=== PATIENT | female | born 1990 | race Caucasian/White ===

== ENCOUNTER 2017-03-27 18:14 | Outpatient (CLI) | END 2017-03-27 20:16 | disposition home or self-care (01) ==

== ENCOUNTER 2017-03-30 08:15 | Inpatient (IN) | END 2017-04-01 18:39 | disposition home or self-care (01) | DRG 775 ==

== ENCOUNTER 2018-04-21 20:55 | Inpatient (IN) | payer OTHER ==
[~2018-04-21] VITALS: Ht 157.5 cm; Wt 77.4 kg
[~2018-04-21 20:55] MED LIST: CALC600T5 PO; FERR240T9 PO; PREN-21 PO
[2018-04-21 21:52] VITALS: Ht 157.5 cm; Wt 77.4 kg
[2018-04-21 21:53] VITALS: BP 113/71; PULSE 91; RESP 18
[2018-04-21] MEDS ORDERED: CARBOPROST 250 MCG INJ IM PRN (22:30)
[2018-04-21] MEDS ORDERED: OXYTOCIN 30 UNITS/LR 500 ML IV SCH ×2 (22:30)
[2018-04-21] MEDS ORDERED: LIDOCAINE 1% (MPF) 30 ML INJ INJ PRN (22:30)
[2018-04-21] MEDS ORDERED: IBUPROFEN 600 MG TAB PO PRN (22:30)
[2018-04-21] MEDS ORDERED: OXYTOCIN 30 UNITS/LR 500 ML IV PRN (22:30)
[2018-04-21] MEDS ORDERED: MISOPROSTOL 200 MCG TAB PR PRN (22:30)
[2018-04-21] MEDS ORDERED: METHYLERGONOVINE 0.2 MG INJ IM PRN (22:30)
[2018-04-21] MEDS ORDERED: HYDROCORTISONE 1% 28 GM CR TOP PRN (22:30)
[2018-04-21] MEDS: LACTATED RINGER'S 1,000 ML IV SCH (23:26)
[2018-04-22] MEDS ORDERED: AMPICILLIN 2 GM/NS (PMX) 100 ML IVPB ONE
[2018-04-22] MEDS ORDERED: OXYTOCIN 30 UNITS/LR 500 ML IV SCH ×2 (03:00→19:44)
[2018-04-22] MEDS: AMPICILLIN 1 GM/NS (PMX) 50 ML IVPB SCH ×4 (04:02→16:15)
[2018-04-22] MEDS: LACTATED RINGER'S 1,000 ML IV SCH ×2 (04:02→10:23)
--- NOTE | 2018-04-22 06:20 | TRIAGE ---
OB Triage Datetime Report Generated by CPN: 04/22/2018 06:20 Datetime: 04/22/2018 05:30 Stage of : Labor Labor Evaluation Frequency: 3-8 Monitor Mode: External Duration (sec)2399: 40-60 Quality: Mild Pattern: Normal: <= 5 Contractions in 10 Minutes Resting Tone Leupp: Relaxed Contraction Comments: SOME UTERINE IRRITABILITY NOTED Heart Rate FHR Baseline Rate: 135 Monitor Mode: External US Variability: Moderate 6-25 bpm Accelerations: 15X15 Decelerations: None Datetime: 04/22/2018 04:30 Stage of : Labor Labor Evaluation Frequency: 5-7 Monitor Mode: External Duration (sec)2399: 40-60 Quality: Mild Pattern: Normal: <= 5 Contractions in 10 Minutes Resting Tone Leupp: Relaxed Contraction Comments: SOME UTERINE IRRITABILITY NOTED Heart Rate FHR Baseline Rate: 135 Monitor Mode: External US Variability: Moderate 6-25 bpm Accelerations: 15X15 Decelerations: None Datetime: 04/22/2018 04:03 Temperature Route: Oral Datetime: 04/22/2018 03:30 Stage of : Labor Labor Evaluation Frequency: OCCASIONAL Monitor Mode: External Duration (sec)2399: 40-60 Quality: Mild Pattern: Normal: <= 5 Contractions in 10 Minutes Resting Tone Leupp: Relaxed Heart Rate FHR Baseline Rate: 130 Monitor Mode: External US Variability: Moderate 6-25 bpm Accelerations: 15X15 Decelerations: None Comments: SOME LOSS OF CONTACT DUE TO PT ITCHING STOMACH Datetime: 04/22/2018 02:30 Stage of : Labor Labor Evaluation Frequency: OCCASIONAL Monitor Mode: External Duration (sec)2399: 40-60 Quality: Mild Pattern: Normal: <= 5 Contractions in 10 Minutes Resting Tone Leupp: Relaxed Heart Rate FHR Baseline Rate: 130 Monitor Mode: External US Variability: Moderate 6-25 bpm Accelerations: 15X15 Decelerations: None Comments: SOME LOSS OF CONTACT DUE TO PT ITCHING STOMACH Datetime: 04/22/2018 01:30 Stage of : Labor Labor Evaluation Frequency: OCCASIONAL Monitor Mode: External Duration (sec)2399: 40-60 Quality: Mild Pattern: Normal: <= 5 Contractions in 10 Minutes Resting Tone Leupp: Relaxed Heart Rate FHR Baseline Rate: 130 Monitor Mode: External US Variability: Moderate 6-25 bpm Accelerations: 15X15 Decelerations: None Comments: SOME LOSS OF CONTACT DUE TO PT ITCHING STOMACH Datetime: 04/22/2018 00:30 Stage of : Labor Labor Evaluation Frequency: OCCASIONAL Monitor Mode: External Duration (sec)2399: 40-60 Quality: Mild Pattern: Normal: <= 5 Contractions in 10 Minutes Resting Tone Leupp: Relaxed Heart Rate FHR Baseline Rate: 125 Monitor Mode: External US Variability: Moderate 6-25 bpm Accelerations: 15X15 Decelerations: None Category: Category I Comments: SOME LOSS OF CONTACT DUE TO PT ITCHING STOMACH Datetime: 04/21/2018 23:30 Assessment Type: Admission Assessment Vaginal Bleeding: None Maternal Assessment Level of Consciousness: Fully Conscious DTR's/Clonus: DTRs 2+; No Clonus Headache: Denies Blurred Vision: No Respiratory Effort: Unlabored; Regular Rhythm; Equal Expansion Breath Sounds, Left: Clear and Equal Breath Sounds, Right: Clear and Equal Nausea/Vomiting: Denies RUQ Epigastric Pain: Denies Lower Extremities Edema: None Degree: None Upper Extremities Edema: None Degree: None Facial Edema: None Fall Risk Assessment History of Falling: (0) No Secondary Diagnosis: (0) No Ambulatory Aid: (0) Bedrest/Nurse Assist IV Therapy: (20) Yes Gait: (0) Normal/Bedrest/Immobile Mental Status: (0) Oriented to Own Ability Fall Score: 20 Fall Risk Score Definition: No Risk: No action required Labor Evaluation Frequency: IRREGULAR Duration (sec)2399: 40-60 Quality: Mild Pattern: Normal: <= 5 Contractions in 10 Minutes Resting Tone Leupp: Relaxed Heart Rate FHR Baseline Rate: 125 Variability: Moderate 6-25 bpm Accelerations: 15X15 Decelerations: None Pain Assessment Pain Scale: 7 Pain Presence: Intermittent Pain Type: Cramping Pain Location: Abdomen Pain Goal: 4 Membrane Status: Intact Datetime: 04/21/2018 23:24 Stage of : Labor Datetime: 04/21/2018 21:55 Vaginal Exam Dilatation (cms): 3.5 Effacement (%): 70 Station: -3 Exam By: Mattie Olson RN Membrane Status: Intact Vaginal Bleeding: None Cervix, Consistency: Soft Cervix, Position: Posterior Presentation 'A': Cephalic Datetime: 04/21/2018 21:39 Time of Arrival: 04/21/2018 22:30 EGA: 39.2 Arrived By: Ambulatory Arrived From: Home Datetime: 04/21/2018 21:15 Time of Arrival: 04/21/2018 20:42 Arrived By: Wheelchair Arrived From: Home Chief Complaint: Constant abd pain Movement: Present Contractions: Irregular Time Contractions Began: 04/18/2018 10:00 Contractions: Constant Rupture of Membranes: Denies Vaginal Bleeding: None Vaginal Discharge: Denies Recent Sexual Intercouse: Denies Abdominal Trauma: Not Applicable Patient Complaints: Cramping; Other Additional Patient Complaints: Heartburn Time Provider Notified: 04/22/2018 22:00 Provider Notified: Eshaghian Initial Plan: CEFM Datetime: 04/21/2018 21:13 Stage of : OB Triage Assessment Type: Triage Maternal Assessment Level of Consciousness: Fully Conscious DTR's/Clonus: DTRs 2+; No Clonus Headache: Denies Blurred Vision: No Respiratory Effort: Unlabored; Regular Rhythm; Equal Expansion Breath Sounds, Left: Clear and Equal Breath Sounds, Right: Clear and Equal Nausea/Vomiting: Denies RUQ Epigastric Pain: Denies Lower Extremities Edema: None Degree: None Upper Extremities Edema: None Degree: None Facial Edema: None Temperature Route: Oral Fall Risk Assessment History of Falling: (0) No Secondary Diagnosis: (0) No Ambulatory Aid: (0) Bedrest/Nurse Assist IV Therapy: (0) No Gait: (0) Normal/Bedrest/Immobile Mental Status: (0) Oriented to Own Ability Fall Score: 0 Fall Risk Score Definition: No Risk: No action required Pain Assessment Pain Scale: 8 Pain Presence: Constant Pain Type: Cramping Pain Location: Abdomen
[2018-04-22] MEDS ORDERED: DIPHENHYDRAMINE 50 MG INJ IM PRN (07:00)
[2018-04-22] MEDS ORDERED: FENTAnyl 2MCG/ML-ROPIV 0.2% 100 ML ONE (09:34)
--- NOTE | 2018-04-22 09:42 | PREAC ---
Date/Time of Note Date/Time of Note DATE: 04/22/18 TIME: 09:41 Anesthesia Eval and Record Evaluation Time Pre-Procedure Interview DATE: 04/22/18 TIME: 09:41 Age 28 Sex female NPO: 8 hrs Preoperative diagnosis Labor Pain Planned procedure Labor Epidural Past Medical History Past Medical History: Includes Heme: Anemia : : (4), Para: (3), Gestational age: (39) Surgery & Anesthesia Issues No known issue Meds Anticoagulation: No Beta Fabián within 24 hr: No Reason Beta Fabián not given: Pt. not on B-Fabián Reported Medications Ferrous Gluconate (Iron) 1 Tab Tablet, 1 TAB PO DAILY 08/02/13 Calcium Carbonate (CALCIUM) 600 Mg Tablet, 600 MG PO DAILY 08/02/13 Vit/Fe Fum/Maribel/Fa ( 19 Tablet) 1 Tab Tablet, 1 TAB PO DAILY 08/02/13 Current Medications Lactated Ringer's 1,000 ml @ 125 mls/hr Q8H IV Last administered on 04/22/18at 04:02; Admin Dose 125 MLS/HR; Start 04/21/18 at 22:18 Lidocaine (Xylocaine 1% (Mpf)) 30 ml ONCE PRN INJ .EPISIOTOMY; Start 04/21/18 at 22:30 Oxytocin/Lactated Ringer's 500 ml @ 500 mls/hr ONCE POST IV ; Start 04/21/18 at 22:30 Oxytocin/Lactated Ringer's 500 ml @ 125 mls/hr POST IV ; Start 04/21/18 at 22:30 Ibuprofen (Motrin) 600 mg ONCE PRN PO .PAIN 1-5; Start 04/21/18 at 22:30 Oxytocin/Lactated Ringer's 500 ml @ 0 mls/hr ONCE PRN IV .VAGINAL BLEEDING; Start 04/21/18 at 22:30 Methylergonovine Maleate (Methergine) 0.2 mg ONCE PRN IM .VAGINAL BLEEDING; Start 04/21/18 at 22:30 Carboprost Tromethamine (Hemabate) 250 mcg ONCE PRN IM .VAGINAL BLEEDING; Start 04/21/18 at 22:30 Misoprostol (Cytotec) 1,000 mcg ONCE PRN AK .VAGINAL BLEEDING; Start 04/21/18 at 22:30 Hydrocortisone (Hydrocortisone 1% Cr) 1 applic BID PRN TOP ITCHING; Start 04/21/18 at 22:30 Ampicillin 50 ml @ 100 mls/hr Q4H IVPB Last administered on 04/22/18at 08:01; Admin Dose 100 MLS/HR; Start 04/22/18 at 04:00 Oxytocin/Lactated Ringer's 500 ml @ 0 mls/hr FOR INDUCTION IV Last administered on 04/22/18at 04:07; Admin Dose 1 MLS/HR; Start 04/22/18 at 03:00 Diphenhydramine HCl (Benadryl) 25 mg Q6H PRN IM ITCHING; Start 04/22/18 at 07:00 Meds reviewed: Yes Allergies Coded Allergies: No Known Allergy (Verified , 04/21/18) Allergies Reviewed: Yes Labs/Studies Labs Reviewed: Reviewed by anesthesiologist Result Diagram: 04/21/18 2235 Laboratory Tests 04/21/18 22:35 Blood Bank Test 04/21/18 22:35 Antibody Screen NEGATIVE Blood Type A POSITIVE Rh Immune Globulin Candidate NO test: Positive Studies: ECG (n/a), CXR (n/a) Pre-procedure Exam Last vitals Vital Signs Date Temp Pulse Resp B/P (MAP) Pulse Ox O2 O2 Flow FiO2 Time Delivery Rate 04/21/18 98.0 91 18 113/71 Room Air 21:53 (85) Airway: Adequate mouth opening, Adequate thyromental dist Mallampati: Mallampati II Teeth: Normal Lung: Normal Heart: Normal ASA Physical Status ASA physical status: 2 Emergency: None Planned Anesthetic Neuraxial: Epidural Planned Pain Management Epidural Pre-operative Attestations Prior to commencing anesthesia and surgery, the patient was re-evaluated, there was verification of: *The patient's identity *The results of appropriate recent lab work and preoperative vital signs *The above evaluation not changing prior to induction *Anesthetic plan, risk benefits, alternative and complications discussed with patient/family; questions answered; patient/family understands, accepts and wishes to proceed. REUBEN YOUNG MD Apr 22, 2018 09:42
--- NOTE | 2018-04-22 09:44 | PAC ---
Date/Time of Note Date/Time of Note DATE: 04/22/18 TIME: 09:43 Post-Anesthesia Notes Post-Anesthesia Note Last documented vital signs Vital Signs Date Temp Pulse Resp B/P (MAP) Pulse Ox O2 O2 Flow FiO2 Time Delivery Rate 04/22/18 98.0 91 18 113/71 Room Air 09:43 (85) Activity: WNL Respiratory function: WNL Cardiovascular function: WNL Mental status: Baseline Pain reasonably controlled: Yes Hydration appropriate: Yes Nausea/Vomiting absent: Yes REUBEN YOUNG MD Apr 22, 2018 09:44
[2018-04-22] MEDS ORDERED: NALOXONE (0.4 MG/ML) INJ IV PRN (10:00)
[2018-04-22] MEDS ORDERED: FENTAnyl 2MCG/ML-ROPIV 0.2% 100 ML BAG EPI SCH (10:00)
[2018-04-22] MEDS ORDERED: ACETAMINOPHEN 325 MG TAB PO PRN (14:00)
--- NOTE | 2018-04-22 17:19 | PREOPHP ---
DATE OF ADMISSION: 04/21/2018 HISTORY OF PRESENT ILLNESS: Ms. Hanna Calabrese is a 28-year-old 4, para 3, EDC 04/26/2018, in trauterine at 39 weeks and 2 days gestational age, presented to triage last night in labor. She reports her pain contraction is 8/10. She denies any vaginal bleeding or discharge. Her [facility] care took place with Dr. Guido. PAST MEDICAL HISTORY: None. MEDICATIONS: vitamins. PAST SURGICAL HISTORY: None. OBSTETRIC HISTORY: Times 3 vaginal deliveries. GYNECOLOGIC HISTORY: Menarche at 14, regular 3 to 4 days. Denies any sexually transmitted disease. Sexually active with 1 partner. SOCIAL HISTORY: Denies any smoking, drugs, or alcohol. FAMILY HISTORY: None. REVIEW OF SYSTEMS: All within normal except history of present illness. PHYSICAL EXAMINATION: HEENT: Within normal. LUNGS: CTA, bilateral. CARDIOVASCULAR: S1, S2, regular rhythm. ABDOMEN: Gravid, nontender. Negative CVA, bilateral. EXTREMITIES: Negative on calf tenderness. PELVIC: Vaginal exam on admission 3 to 4 cm dilated, 70% effaced, -3 station. heart tracing c ategory 1, TOCO regular contractions. ASSESSMENT: Intrauterine at term in labor. PLAN: Admit the patient with Pitocin augmentation. Dictated By: DIANNE REDDY/PASQUALE Conf#: [id number] DID#: [id number]
--- NOTE | 2018-04-22 19:44 | LDN ---
Date/Time of Note Date/Time of Note DATE: 04/22/18 TIME: 19:43 Delivery Summary Weeks of Gestation 39 Placenta Delivered: Spontaneously Meconium: none Episiotomy: No Estimated blood loss: 150 Sponge & Needle done & correct: Yes All needle counts correct: Yes Any foreign bodies felt in the: No Delivery Information Sex Infant Sex: female Apgars 1 Minute: 9 5 Minute: 9 Suctioning Nose & mouth suctioned at kenji: No Delee suction performed: No Umbilical Cord Umbilical cord with: 3 Vessels Cord presentations: no nuchal cord Cord Blood was obtained: Yes DIANNE COLE MD Apr 22, 2018 19:44
[2018-04-22] MEDS ORDERED: WITCH HAZEL/GLYCERIN PAD PR PRN (20:00)
[2018-04-22] MEDS ORDERED: OXYTOCIN 30 UNITS/LR 500 ML IV PRN (20:00)
[2018-04-22] MEDS ORDERED: CARBOPROST 250 MCG INJ IM PRN (20:00)
[2018-04-22] MEDS ORDERED: METHYLERGONOVINE 0.2 MG INJ IM PRN (20:00)
[2018-04-22] MEDS ORDERED: MISOPROSTOL 200 MCG TAB PR PRN (20:00)
[2018-04-22] MEDS ORDERED: ONDANSETRON 4 MG INJ IV PRN (20:00)
[2018-04-22] MEDS ORDERED: BENZOCAINE 20% 56 ML SPRAY TOP PRN (20:00)
[2018-04-22] MEDS ORDERED: DIPHENHYDRAMINE 25 MG CAP PO PRN (20:00)
[2018-04-22] MEDS ORDERED: LANOLIN HPA 1 PKT TOP PRN (20:00)
[2018-04-22] MEDS ORDERED: NACL 0.9% 3 ML SYG IV SCH (20:00)
[2018-04-22 20:26] VITALS: BP 108/64; PULSE 82; RESP 19
[2018-04-22 20:41] VITALS: BP 109/70; PULSE 83; RESP 19
[2018-04-22 20:56] VITALS: BP 117/67; PULSE 86; RESP 18
[2018-04-22] MEDS: SENNA/DOCUSATE NA (8.6MG/50MG) TAB PO SCH (21:00)
[2018-04-22 21:11] VITALS: BP 106/56; PULSE 77; RESP 18
[2018-04-22 21:35] VITALS: BP 93/53; PULSE 65; RESP 18
[2018-04-23] MEDS: IBUPROFEN 600 MG TAB PO SCH ×4 (00:23→18:00)
[2018-04-23 04:13] VITALS: BP 113/61; PULSE 74; RESP 18
[2018-04-23] MEDS: OXYCODONE/ASPIRIN (4.88/325) TAB PO PRN ×4 (04:28→21:25)
[2018-04-23] MEDS: SENNA/DOCUSATE NA (8.6MG/50MG) TAB PO SCH ×2 (08:01→21:22)
[2018-04-23 08:30] VITALS: BP 107/60; PULSE 70; RESP 20
[2018-04-23 15:44] VITALS: BP 99/64; PULSE 85; RESP 20
[2018-04-23 20:14] VITALS: BP 90/50; PULSE 63; RESP 18
[2018-04-24] MEDS: IBUPROFEN 600 MG TAB PO SCH ×3 (00:25→11:40)
[2018-04-24 04:05] VITALS: BP 109/67; PULSE 75; RESP 18
[2018-04-24] MEDS: OXYCODONE/ASPIRIN (4.88/325) TAB PO PRN (06:37)
[2018-04-24 08:30] VITALS: BP 100/54; PULSE 65; RESP 18
[2018-04-24] MEDS ORDERED: DIPHTH/TET/ACEL PERTUSS (ADULT) 0.5 ML VIAL IM* ONE (10:00)
[2018-04-24] MEDS: SENNA/DOCUSATE NA (8.6MG/50MG) TAB PO SCH (11:40)
--- NOTE | 2018-04-24 17:45 | PD.PPDC ---
WOUND CARE RN Discharge Instruction Provider Information Physician Information 04/24/2018 Diagnosis [id number] Final Diagnosis: [id number] s/p Condition [id number] Patient Condition: Ihelz9n Good Activity/Restrictions [id number] Activity: [id number] Normal Activity Bedrest [id number] Restrictions: [id number] No Exercising No Lifting No Driving Minimize Walking Minimize Stair-climbing No Sexual Activity Nothing in the Vagina No [place] No Tampons, douche Follow-up Follow-up with Physician: 1 Return to clinic for [id number] PORTFOLIO ARCHITECT Instructions: Tzfwz2i Fever greater than 101 Chills Worsening abdominal pain Excessive Vaginal Bleeding More than 2 pads per hour Unable to tolerate diet [id number] OB Instructions: Ztsbl2e Breast Tenderness Depression Blurried Vision Headache VINCENT DIETRICH MD Apr 24, 2018 17:45
--- NOTE | 2018-04-24 17:49 | PN ---
Date/Time of Note Date/Time of Note DATE: 04/24/18 TIME: 17:46 OB Subjective Subjective Subjective Vaginal bleeding mild. Breast-feeding. Baby is a still in NICU. Reports of swelling of both lower extremity otherwise denies any other symptoms. Ambulating. Urinated. Denies any complaint. OB Objective Objective Objective GA: Alert and oriented x4 does not appear to be in any acute distress Abdomen: Soft, fundus palpable below the umbilicus and nontender Extremities: 2+ bilateral lower extremity edema, no cord palpable negative Homans sign Breast: No evidence of mastitis or fissure VS - Last 72 Hours, by Label Date Temp Pulse Resp B/P (MAP) Pulse Ox O2 O2 Flow FiO2 Time Delivery Rate 04/24/18 98.3 65 18 100/54 Room Air 08:30 (69) 04/24/18 98.0 75 18 109/67 Room Air 04:05 (81) 04/23/18 97.8 63 18 90/50 (63) Room Air 20:14 04/23/18 97.7 85 20 99/64 (76) 15:44 04/23/18 98.6 70 20 107/60 Room Air 08:30 (76) 04/23/18 97.5 74 18 113/61 Room Air 04:13 (78) 04/22/18 98.1 65 18 93/53 (66) Room Air 21:35 04/22/18 77 18 106/56 Room Air 21:11 (73) 04/22/18 86 18 117/67 Room Air 20:56 (84) 04/22/18 83 19 109/70 Room Air 20:41 (83) 04/22/18 97.6 82 19 108/64 Room Air 20:26 (79) 04/21/18 98.0 91 18 113/71 Room Air 21:53 (85) Laboratory Tests Test 04/23/18 06:15 04/23/18 06:33 White Blood Count 6.9 10^3/ul Red Blood Count 3.57 10^6/ul Hemoglobin 9.4 g/dl Hematocrit 29.6 % Mean Corpuscular Volume 82.9 fl Mean Corpuscular Hemoglobin 26.3 pg Mean Corpuscular Hemoglobin Concent 31.8 g/dl Red Cell Distribution Width 13.9 % Platelet Count 144 10^3/UL Mean Platelet Volume 11.1 fl Immature Granulocytes % 1.200 % Neutrophils % 69.3 % Lymphocytes % 18.2 % Monocytes % 10.6 % Eosinophils % 0.6 % Basophils % 0.1 % Nucleated Red Blood Cells % 0.4 /100WBC Immature Granulocytes # 0.080 10^3/ul Neutrophils # 4.8 10^3/ul Lymphocytes # 1.3 10^3/ul Monocytes # 0.7 10^3/ul Eosinophils # 0.0 10^3/ul Basophils # 0.0 10^3/ul Nucleated Red Blood Cells # 0.0 10^3/ul Lab Scanned Report [facility] [id number] OB Assessment/Plan Other Assessment: Status post day #2 Doing well Anemia, , asymptomatic Advised patient to take iron twice a day with stool softener Follow-up with primary OB office in 1 week and 6 is discussed Patient verbalized understanding Bilateral lower extremity swelling, symmetric, no evidence of DVT, reassured, advised the patient elevated and legs and using support stocking DC home today Follow-up in 6 weeks and with OB office VINCENT DIETRICH MD Apr 24, 2018 17:49
--- NOTE | 2018-04-24 17:51 | DS ---
Date/Time of Note Date/Time of Note DATE: 04/24/18 TIME: 17:50 Discharge Summary Admission/Discharge Info Admit Date/Time Apr 21, 2018 at 22:00 Discharge Date/Time Apr 24, 2018 at 17:00 Discharge Diagnosis Status post Anemia, asymptomatic, Patient Condition: Good Consults N/A Procedures Hx of Present Illness Ms. Hanna Calabrese is a 28-year-old 4, para 3, EDC 04/26/2018, intrauterine at 39 weeks and 2 days gestational age, presented to triage last night in labor. She had uncomplicated intrapartum course. course only was complicated by anemia, , likely under estimated blood loss. Patient was asymptomatic. Otherwise no other issue. On day #2 patient was noted to be stable enough for discharge. She was vomiting. Breast-feeding. Urinated. Denies any symptoms. Advised to take iron twice a day with stool softener and follow-up in 1 weeks and 6 weeks with primary OB office Hospital Course Complicated only for anemia, , asymptomatic. Patient can ambulate without any symptoms. Advised patient take her vitamin and iron and follow-up within 1 week and 6 weeks with primary OB office Home Meds Reported Medications Ferrous Gluconate (Iron) 1 Tab Tablet, 1 TAB PO DAILY 08/02/13 Calcium Carbonate (CALCIUM) 600 Mg Tablet, 600 MG PO DAILY 08/02/13 Vit/Fe Fum/Maribel/Fa ( 19 Tablet) 1 Tab Tablet, 1 TAB PO DAILY 08/02/13 Follow-up Plan In 1 week and 6 is with primary OB office Primary Care Provider Not On Staff Doctor Time spent on discharge: < 30 minutes VINCENT DIETRICH MD Apr 24, 2018 17:51
== END 2018-04-24 17:00 | disposition home or self-care (01) | DRG 807 ==
LOC: OBT 20:55 → L-D 21:02 → OBT 22:00 → L-D 22:00 → PP1 04-22 21:36
PROVIDERS: ADMIT Obstetrics & Gynecology; ATTEND Obstetrics & Gynecology
PROC: 10E0XZZ Delivery of Products of Conception, External Approach (ICD-10-PCS; principal; 2018-04-22)
DX: O80 Encounter for full-term uncomplicated delivery (principal); Z37.0 Single live birth; O90.81 Anemia of the puerperium; Z3A.39 39 weeks gestation of pregnancy
CPT/HCPCS: 62319; 76815; 85025; 85610; 85730; 86592; 86850; 86900; 86901; 87340; 90715; G0463; J0290; J2210; J2590; J3010; J7120